=== PATIENT | female | born 1990 | race Caucasian/White ===

== ENCOUNTER 2016-07-06 01:33 | Outpatient (CLI) | payer MEDICAID ==
[~2016-07-06] VITALS: Ht 154.7 cm; Wt 65.0 kg
[~2016-07-06 01:33] MED LIST: ACET325T38 PO; FERR325T36 PO; IBUP-793 PO; NAPR220T76 PO; PNV1CAPS13 PO
[2016-07-06 01:46] VITALS: BP 125/78
[2016-07-06] MEDS ORDERED: PREN-142 PO (02:08)
== END 2016-07-06 02:20 ==
LOC: EUOP 01:33 → OB 01:38 → EUOP 02:20
PROVIDERS: ATTEND Family Medicine
DX: O47.03 False labor before 37 completed weeks of gestation, third trimester (principal); Z3A.36 36 weeks gestation of pregnancy
CPT/HCPCS: 99202

== ENCOUNTER 2016-08-06 06:11 | Inpatient (IN) | payer MEDICAID ==
[~2016-08-06] VITALS: Ht 157.5 cm; Wt 71.0 kg
[2016-08-06] VITALS (35 sets, daily range): BP systolic 103–158; BP diastolic 59–86
[~2016-08-06 06:11] MED LIST changes: +PREN-142 PO
[2016-08-06] MEDS ORDERED: OXYTOCIN INJ 20 UNIT in NS 1000ml 1,000 ML IV PRN (06:12)
[2016-08-06] MEDS ORDERED: SODIUM CHLORIDE FLUSH 3 ML SYR IV PRN (06:15)
[2016-08-06] MEDS ORDERED: CALCIUM CARBONATE CHEWABLE 300 MG (TUMS) TABLET PO PRN (06:15)
--- OUTSIDE RECORDS SUMMARY | 2016-08-06 06:16 | XMS REPORT | Continuity of Care Document ---
Author Author [facility] Address Unknown Phone Unavailable Allergies Active Description Code Type Severity Reaction Onset Reported/Identified Relationship to Patient Clinical Status Yes Sulfa (Sulfonamide Antibiotics) [id number] Drug Allergy Unknown N/A 07/12/2013 Medications Problems Date Dx Coded Attending Type Code Diagnosis Diagnosed By 11/17/2011 Ot 620.2 OVARIAN CYST NEC/NOS 11/17/2011 Ot 789.00 ABDOMINAL PAIN, UNSPECIFIED SITE 02/11/2012 Ot 634.11 SPON ABORT W HEMORR-INC 06/24/2013 ELIZABETH GARCIA, VALERIO W Ot 644.03 THRT LILLI LABOR-ANTEPART 07/15/2013 ELIZABETH GARCIA, VALERIO W Ot 285.9 ANEMIA NOS 07/15/2013 ELIZABETH GARCIA, VALERIO W Ot 645.11 POST TERM PREG, DELIV W/WO MENTION OF AN 07/15/2013 ELIZABETH GARCIA, VALERIO W Ot 648.21 ANEMIA-DELIVERED 07/15/2013 ELIZABETH GARCIA, VALERIO W Ot 660.41 SHOULDER DYSTOCIA-DELIV 07/15/2013 ELIZABETH GARCIA, VALERIO W Ot 663.31 CORD ENTANGLE NEC-DELIV 07/15/2013 ELIZABETH GARCIA, VALERIO W Ot 664.11 DEL W 2 DEG LACERAT-DEL 07/15/2013 ELIZABETH GARCIA, VALERIO W Ot V15.82 HISTORY OF TOBACCO USE 07/15/2013 ELIZABETH GARCIA, VALERIO Carpenter Ot V27.0 DELIVER-SINGLE LIVEBORN 04/15/2014 ELIZABETH GARCIA, VALERIO W Ot V15.82 04/15/2014 ELIZABETH GARCIA, VALERIO W Ot V28.89 04/15/2014 ELIZABETH GARCIA, VALERIO W Ot V15.82 04/15/2014 ELIZABETH GARCIA, VALERIO W Ot 642.93 04/15/2014 ELIZABETH GARCIA, VALERIO W Ot V15.82 04/15/2014 ELIZABETH GARCIA, VALERIO W Ot V28.89 04/15/2014 ELIZABETH GARCIA, VALERIO W Ot 642.93 04/15/2014 ELIZABETH GARCIA, VALERIO W Ot V15.82 07/23/2014 ELIZABETH GARCIA, VALERIO W Ot V15.82 07/23/2014 ELIZABETH GARCIA, VALERIO W Ot V28.89 07/23/2014 ELIZABETH GARCIA, VALERIO W Ot 642.93 07/24/2014 ELIZABETH GARCIA, VALERIO W Ot V15.82 07/24/2014 ELIZABETH GARCIA, VALERIO W Ot V28.89 07/24/2014 ELIZABETH GARCIA, VALERIO W Ot 642.93 12/20/2014 CAROLYNN STEWART Ot 473.9 12/20/2014 CAROLYNN STEWART Ot 611.0 07/08/2015 Ot O00.9 07/17/2015 Ot O00.9 07/17/2015 Ot O00.9 07/18/2015 Ot O00.9 ECTOPIC , UNSPECIFIED 07/23/2015 Mejia Lynn Ot O20.0 THREATENED 07/27/2015 Mejia Lynn Ot O20.0 THREATENED 07/31/2015 Mejia Lynn Ot O20.0 THREATENED 08/01/2015 Mejia Lynn Ot O20.0 THREATENED 08/03/2015 Mejia Lynn Ot O20.0 THREATENED 08/08/2015 Mejia Lynn Ot O20.0 THREATENED 08/12/2015 Mejia Lynn Ot O02.1 MISSED 08/15/2015 Mejia Lynn Ot O20.0 THREATENED 08/22/2015 LO GARCIA, LINA Ot N93.9 ABNORMAL UTERINE AND VAGINAL BLEEDING, U 08/22/2015 LO GARCIA, LINA Ot Z98.89 OTHER SPECIFIED POSTPROCEDURAL STATES 08/22/2015 ELIZABETH GARCIA, VALERIO Carpenter Ot V15.82 HISTORY OF TOBACCO USE 08/22/2015 ZENOBIA MARLEY DO Ot V64.2 NO PROC/PATIENT DECISION 08/22/2015 CAROLYNN STEWART Ot 473.9 CHRONIC SINUSITIS NOS 08/22/2015 CAROLYNN STEWART Ot 611.0 INFLAM DISEASE OF BREAST 08/22/2015 Ot O00.9 ECTOPIC , UNSPECIFIED 08/22/2015 Mejia Lynn Ot O20.0 THREATENED 08/22/2015 Mejia Lynn Ot O20.0 THREATENED 08/22/2015 Mejia Lynn Ot O20.0 THREATENED 08/22/2015 Mejia Lynn Ot O02.1 MISSED 08/26/2015 LO GARCIA, LINA Ot N93.9 ABNORMAL UTERINE AND VAGINAL BLEEDING, U 08/26/2015 LO GARCIA, LINA Ot Z98.89 OTHER SPECIFIED POSTPROCEDURAL STATES 08/26/2015 LO GARCIA, ILNA Ot N93.9 ABNORMAL UTERINE AND VAGINAL BLEEDING, U 08/26/2015 LO GARCIA, LINA Ot Z98.89 OTHER SPECIFIED POSTPROCEDURAL STATES 08/27/2015 Mejia Lynn Ot O02.1 MISSED 10/04/2015 Mejia Lynn Ot O20.0 THREATENED 10/27/2015 Mejia Lynn Ot O20.0 THREATENED 11/06/2015 CAROLYNN STEWART Ot 473.9 CHRONIC SINUSITIS NOS 11/06/2015 CAROLYNN STEWART Ot 611.0 INFLAM DISEASE OF BREAST 11/11/2015 Mejia Lynn Ot O20.0 THREATENED 11/11/2015 Mejia Lynn Ot O20.0 THREATENED 11/11/2015 Ot O00.9 ECTOPIC , UNSPECIFIED 11/26/2015 Ot O00.9 ECTOPIC , UNSPECIFIED 11/26/2015 Mejia Lynn Ot O20.0 THREATENED 11/28/2015 Mejia Lynn Ot O20.0 THREATENED 03/16/2016 VALERIO JOHNSON MD Ot Z36 ENCOUNTER FOR SCREENING OF MOT 03/16/2016 VALERIO JOHNSON MD Ot Z3A.18 18 WEEKS GESTATION OF 03/31/2016 VALERIO JOHNSON MD Ot Z36 ENCOUNTER FOR SCREENING OF MOT 03/31/2016 VALERIO JOHNSON MD Ot Z3A.18 18 WEEKS GESTATION OF 07/06/2016 VALERIO JOHNSON MD Ot O47.03 FALSE LABOR BEFORE 37 COMPLETED WEEKS OF 07/06/2016 VALERIO JOHNSON MD, Ot Z3A.36 36 WEEKS GESTATION OF 07/09/2016 VALERIO JOHNSON MD Ot O47.03 FALSE LABOR BEFORE 37 COMPLETED WEEKS OF 07/09/2016 VALERIO JOHNSON MD, Ot Z3A.36 36 WEEKS GESTATION OF 07/24/2016 VALERIO JOHNSON MD Ot V15.82 HISTORY OF TOBACCO USE 07/24/2016 VALERIO JOHNSON MD Ot V28.89 OTHER SPECIFIED SCREENING 07/24/2016 VALERIO JOHNSON MD Ot 642.93 HYPERTENS NOS-ANTEPARTUM Procedures Code Description Performed By Performed On 96.49 OTHER INSTILLATION 07/12/2013 72.79 VACUUM EXTRACT DEL NEC 07/13/2013 73.09 ARTIF RUPT MEMBRANES NEC 07/13/2013 75.69 REPAIR OB LACERATION NEC 07/13/2013 Results Encounters ACCT No. Visit Date/Time Discharge Status Pt. Type Provider Facility Loc./Unit Complaint [id number] 07/06/2016 01:33:00 2016 02:20:00 DIS Outpatient ELIZABETH GARCIA, [facility] EUOP LABOR EVAL [id number] 08/21/2015 22:40:00 2015 01:40:00 DIS Emergency LO GARCIA, [facility] ED [id number] 08/12/2015 15:04:00 2015 15:04:00 LEX Cifuentes MD, [facility] LAB [id number] 11/30/2014 09:05:00 2014 23:59:59 CLS Outpatient CAROLYNN STEWART [facility] [id number] 04/15/2014 22:25:00 2014 23:59:59 CLS Emergency ZENOBIA MARLEY DO [facility] ED [id number] 07/12/2013 05:38:00 2013 12:15:00 DIS Inpatient ELIZABETH GARCIA, [facility] OB VAG DELIVERY [id number] 07/03/2013 14:32:00 2013 23:59:59 CLS Outpatient ELIZABETH GARCIA, [facility] LAB LAB DROP OFF [id number] 06/24/2013 09:19:00 2013 11:40:00 DIS Outpatient ELIZABETH GARCIA, [facility] OBGOP LABOR EVAL [id number] 01/31/2013 12:48:00 2012 23:59:59 CLS Outpatient ELIZABETH GARCIA, [facility] RAD [id number] 12/20/2012 13:41:00 2012 23:59:59 CLS Outpatient ELIZABETH GARCIA, [facility] RAD LMP 6-26-13 [id number] 03/08/2016 10:56:00 ACT Outpatient ELIZABETH GARCIA, [facility] RAD ANATOMIC SURVEY [id number] 08/05/2015 15:14:00 ACT Outpatient [facility] LAB [id number] 07/29/2015 09:16:00 ACT Outpatient [facility] LAB [id number] 07/22/2015 14:19:00 ACT Outpatient [facility] LAB [id number] 07/15/2015 10:41:00 ACT Outpatient [facility] LAB LAB WORK [id number] 07/07/2015 19:11:00 Document Registration [id number] 02/11/2012 12:01:00 Document Registration [id number] 11/17/2011 11:40:00 Document Registration
[2016-08-06] MEDS ORDERED: FERR325C PO (06:55)
[2016-08-06] MEDS ORDERED: SODIUM CHLORIDE FLUSH 0 ML ONE (06:56)
[2016-08-06] MEDS ORDERED: OXYTOCIN INJ 20 UNIT in NS 1000ml 1,000 ML SCH (07:05)
[2016-08-06] MEDS ORDERED: SODIUM CHLORIDE FLUSH 10 ML ONE (07:16)
[2016-08-06] MEDS ORDERED: OXYTOCIN 10 UNIT/ML (PITOCIN) 1 ML VIAL ONE (07:16)
[2016-08-06 07:18] LABS: MEAN CORPUSCULAR HEMOGLOBIN 28.5 PG (26.0-34.0); MEAN CORPUSCULAR HGB CONC 33.1 g/dL (31.0-37.0); MEAN PLATELET VOLUME 11.6 FL (6.0-9.5); WHITE BLOOD COUNT 7.63 10^3uL (4.0-11.0)
[2016-08-06] MEDS ORDERED: OXYTOCIN INJ 20 UNIT in NS 1000ml 1,000 ML IV SCH (07:40)
--- NOTE | 2016-08-06 09:12 | History and Physical (E) ---
History & Physical (OB) Subjective: CC:induction HPI:26 y/o now 40+5 WGA for post due date induction. Reports normal FM , rare contractions, no LOF. GBS-. No complications this . PNC:Dr. Ferguson until 37 weeks, then Dr. Kulkarni OB Hx: at term x1, no complication. SAB x2, D&C x1. PMHx:none PSHx:D&C x1 Allergies: Coded Allergies: Sulfa (Sulfonamide Antibiotics) (Verified Allergy, Unknown, 07/12/13) Home Medications: Reported Medications Ferrous Sulfate (Iron)325 Mg Capsule.er325 Mg PO DAILY 08/06/16 Vit No.124/Iron/FA ( Vitamin Tablet)1 Each Tablet1 Each PO DAILY 07/06/16 Objective: Vital Signs Date Time Temp Pulse Resp B/P Pulse Ox O2 Delivery O2 Flow Rate FiO2 08/06/16 08:15 98.0 81 16 135/63 Laboratory Results Past 24 Hrs 08/06/16 06:50: Hematocrit 38.40, Hemoglobin 12.7, Mean Corpuscular Hemoglobin 28.5, Mean Corpuscular Hemoglobin Concent 33.1, Mean Corpuscular Volume 86, Mean Platelet Volume 11.6, Platelet Count 204, Red Blood Count 4.46, Red Cell Distribution Width 16.2, White Blood Count 7.63 General: Alert and oriented, NAD Chest: CTA Abdomen: Gravid Cardiovasular: RRR, No murmur Extremities: No edema FHT's:130, reactive, reassuring Cx:2/75, VTX [place]:none Screenings: Blood type: A Positive, Rubella Immune, RPR non-reactive, HBV Negative, HIV Negative , GBS Negative. Problems/Plans: (1) Post term over 40 weeks Admit, start oxytocin induction. GBS-. Anticipate . Additional Copies to: End of Report . CORINNE KULKARNI MD August 06, 2016 09:12
[2016-08-06] MEDS ORDERED: ROPIVACAINE 1% 10 MG/ML (NAROPIN) 20 ML AMPUL ONE (15:47)
[2016-08-06 17:06] LABS: BILIRUBIN,URINE Negative (Negative); CLARITY,URINE Clear; GLUCOSE, URINE (UA) Negative (Negative); LEUKOCYTE ESTERASE ,URINE Negative (Negative); UROBILINOGEN,URINE 0.2 mg/dL (0.2-1.0)
[2016-08-06 17:10] LABS: COLOR,URINE Light Yellow
[2016-08-06 17:23] LABS: URINE CENTRIFUGED VOLUME 12 mL
[2016-08-06 17:25] LABS: RBC,URINE 0-2 /HPF
[2016-08-06] MEDS ORDERED: ONDANSETRON 2 MG/ML (Z0FRAN) 2 ML VIAL IV ONE (19:30)
[2016-08-06] MEDS ORDERED: HYDROcodone/APAP 5 MG/325 MG (NORCO) TAB PO PRN (20:05)
[2016-08-06] MEDS ORDERED: LANOLIN OINTMENT 28 GM TUBE TOP PRN (20:05)
[2016-08-06] MEDS ORDERED: M-M-R II (MEASLES,MUMPS,RUBELLA) VACCINE SC SCH (20:05)
--- NOTE | 2016-08-06 20:07 | Vaginal Delivery Summary (E) ---
Vaginal Delivery Summary At 06:20 on 08/06/16 this 26 year old G 4 now P2 presented to the Labor and Delivery Unit at 40 weeks gestation. The patient presented for care in the first trimester and ultrasound at that time confirmed dates. This complications: None Maternal labs: Blood type: A Positive, Hgb 11.9, Rubella Immune, RPR non- reactive, HBV Negative, HIV Negative , GBS Negative. Tdap booster received on . She presented for Post due date induction . At presentation, she was 2 cm dilated. On 08/06/16 at 14:40, AROM was performed by Dr Kulkarni with Clear fluid returned. Epidural was placed at 16:03 by Pierre Briceño CRNA, with good pain relief. of viable, vertex baby boy without complication. Placenta delivered intact. Perineum intact. EBL 50cc. CORINNE KULKARNI MD August 06, 2016 20:07
[2016-08-06] MEDS: DOCUSATE SODIUM 100 MG (COLACE) CAP PO SCH (21:54)
[2016-08-07] MEDS: IBUPROFEN 600 MG (MOTRIN) TAB PO PRN ×3 (06:47→23:37)
[2016-08-07 06:52] LABS: MEAN CORPUSCULAR HEMOGLOBIN 28.7 PG (26.0-34.0); MEAN CORPUSCULAR HGB CONC 33.1 g/dL (31.0-37.0); MEAN PLATELET VOLUME 11.1 FL (6.0-9.5); WHITE BLOOD COUNT 11.43 10^3uL (4.0-11.0)
[2016-08-07 08:27] VITALS: BP 112/70
--- NOTE | 2016-08-07 11:53 | Progress Note (E) ---
Post- Progress Note Subjective: Doing great, PPD#1. Lochia normal, tolerating PO, pain minimal. is a little poor for baby, still working on it. Objective: Vital Signs Date Time Temp Pulse Resp B/P Pulse Ox O2 Delivery O2 Flow Rate FiO2 08/07/16 08:27 98.2 76 18 112/70 Room air I & O 08/06/16 08/07/16 19:00 07:00 Intake Total 3629 ml Output Total 1900 ml Balance 1729 ml Laboratory Tests 08/06/16 16:45: Urine Bacteria None seen, Urine Bilirubin Negative, Urine Blood Trace-intact, Urine Clarity Clear, Urine Collection Type Catheter, Urine Color Light yellow, Urine Glucose (UA) Negative, Urine Ketones 1+, Urine Leukocyte Esterase Negative , Urine Microscopic RBC 0-2, Urine Mucus 1+, Urine Nitrite Negative, Urine Protein Negative, Urine Specific [place] 1.010, Urine Squamous Epithelial Cells 5-10, Urine Urobilinogen 0.2, Urine WBC 0-2, Urine pH 7.0, Volume Urine Centrifuged 12 ml 08/07/16 06:50: Hematocrit 35.00, Hemoglobin 11.6, Mean Corpuscular Hemoglobin 28.7, Mean Corpuscular Hemoglobin Concent 33.1, Mean Corpuscular Volume 87, Mean Platelet Volume 11.1, Platelet Count 172, Red Blood Count 4.04, Red Cell Distribution Width 16.1, White Blood Count 11.43 Blood type: A Positive, Current Medications Calcium Carbonate 1-2 tablets PO q4 ho... Q4H PRN PO Last administered on 07:33; Admin Dose 600 MG; Start 08/06/16 at 06:15 Ibuprofen 600 mg Q6H PRN PO Last administered on 08/07/16 06:47; Admin Dose 600 MG; Start 08/06/16 at 20:05 Docusate Sodium 100 mg HS PO Last administered on 08/06/16 21:54; Admin Dose 100 MG; Start 08/06/16 at 21:00 Lanolin 28 gm PRN PRN TOP; Start 08/06/16 at 20:05 Acetaminophen/ Hydrocodone Bitart Total acetaminophen not... Q4H PRN PO; Start 08/06/16 at 20:05 General: Alert and oriented, NAD Abdomen: Soft, non-distended, fundus firm Extremities: No edema Cardiovascular: RRR, No murmur Problems/Plans: (1) Post term over 40 weeks (2) Normal delivery at term Comment Doing great PPD#1. Working on . Hgb stable 11.4. Plan discharge in am. CORINNE KULKARNI MD August 07, 2016 11:53
[2016-08-07 20:34] VITALS: BP 110/72
[2016-08-07] MEDS: DOCUSATE SODIUM 100 MG (COLACE) CAP PO SCH (21:57)
[2016-08-08 08:10] VITALS: BP 125/77
[2016-08-08] MEDS ORDERED: HYDR-3702 PO (09:09)
--- NOTE | 2016-08-08 09:16 | Discharge Summary (E) ---
OB Discharge Summary Admit Date/Time August 06, 2016 at 06:11 Discharge Date/Time 08/07/16 Admitting Provider Wyatt Kulkarni MD Primary Care Provider José Miguel Caceres MD Attending Provider Wyatt Kulkarni MD Consulting Provider Procedures on 08/06/16 without complication. Admission Diagnosis Post due date induction History and Present Illness See History and Physical for complete details. Hospital Course and Treatment Underwent pitocin induction, AROM. Labor, delivery, and PP uncomplicated. Discharged home PPD#2 with F/U 6 weeks planned. Discharge Physicial Exam General Alert and oriented, NAD Abdomen Soft, non-distended, fundus firm Extremities No edema Cardiovascular: RRR, No murmur Discharge Disposition Home Instructions Nothing PV 6 weeks. No lifting >20lbs for 2 weeks. Call with severe pain, bleeding, fever or trouble with . Diet Regular Discharge Medications New Medications: Hydrocodone/Acetaminophen ([place] 5mg/325mg) 1 Each Tablet 1-2 TAB PO Q6H PRN PAIN #30 Ref 0 TAB Continued Medications: Vit No.124/Iron/FA ( Vitamin Tablet) 1 Each Tablet 1 EACH PO DAILY TAB Discontinued Medications: Ferrous Sulfate (Iron) 325 Mg Capsule.er 325 MG PO DAILY CAP Follow up Comment F/U 6 weeks. Discharge Diagnosis Problems/Plans: (1) Post term over 40 weeks (2) Normal delivery at term Comment Doing great PPD#2, discharge home, precautions reviewed. Copies to: End of Report . WYATT KULKARNI MD August 08, 2016 09:16
== END 2016-08-08 10:45 | disposition home or self-care (01) | DRG 775 ==
LOC: OB 06:11
PROVIDERS: ADMIT Obstetrics & Gynecology; ATTEND Obstetrics & Gynecology
PROC: 10E0XZZ Delivery of Products of Conception, External Approach (ICD-10-PCS; principal; 2016-08-06)
PROC: 10907ZC Drainage of Amniotic Fluid, Therapeutic from Products of Conception, Via Natural or Artificial Opening (ICD-10-PCS; 2016-08-06)
PROC: 3E033VJ Introduction of Other Hormone into Peripheral Vein, Percutaneous Approach (ICD-10-PCS; 2016-08-06)
DX: O48.0 Post-term pregnancy (principal); Z37.0 Single live birth; Z3A.40 40 weeks gestation of pregnancy
CPT/HCPCS: 36415; 81003; 81015; 85027; 86850; 86900; 86901